=== PATIENT | female | born 1950 | race Caucasian/White ===

== ENCOUNTER → 2017-10-27 | Outpatient (CLI) | payer MEDICARE ==
[~2017-10-27] MED LIST: APIX5TAB PO; DILT240C61 PO; LEVO50TA5 PO; METO50TA82 PO; OMNIPAQUE 350 MG/ML, 150 ML BOTTLE ONE
== END | disposition home or self-care (01) ==
LOC: CFH 11:00
PROVIDERS: ATTEND Internal Medicine Cardiovascular Disease
DX: I48.91 Unspecified atrial fibrillation (principal); I25.10 Atherosclerotic heart disease of native coronary artery without angina pectoris
CPT/HCPCS: 71046; 75572; 82565; Q9967

== ENCOUNTER 2017-10-28 06:24 | Inpatient (IN) | payer MEDICARE ==
[2017-10-27 13:18] VITALS: BP 124/82
[2017-10-27 13:53] LABS: BASOPHILS # (AUTO) 0.06 x10^3/uL (0-0.1); BASOPHILS % (AUTO) 1 % (0-1); EOSINOPHILS # (AUTO) 0.09 x10^3/uL (0-0.4); EOSINOPHILS % (AUTO) 1 % (1-7); LYMPHOCYTES # (AUTO) 3.55 x10^3/uL (1-3.4); LYMPHOCYTES % (AUTO) 38 % (22-44); MD NO; MEAN CORPUSCULAR HEMOGLOBIN 29.6 pg (27.0-34.8); MEAN CORPUSCULAR HGB CONC 33.4 g/dL (32.4-35.8); MEAN CORPUSCULAR VOLUME 88.6 fL (80-100); MEAN PLATELET VOLUME 8.8 fL (7.4-10.4); MONOCYTES # (AUTO) 0.89 x10^3/uL (0.2-0.8); MONOCYTES % (AUTO) 10 % (2-9); NEUTROPHILS # (AUTO) 4.77 x10^3/uL (1.8-6.8); NEUTROPHILS % (AUTO) 51 % (42-75); PLATELET COUNT 250 x10^3/uL (130-400); RED BLOOD COUNT 4.95 x10^6/uL (3.82-5.3); RED CELL DISTRIBUTION WIDTH 14.6 % (9.6-15.2)
[2017-10-27 13:58] LABS: ALANINE AMINOTRANSFERASE 43 U/L (12-78); ALBUMIN 3.5 g/dL (3.4-5.0); ANION GAP 10 mmol/L (5-15); CHLORIDE 104 mmol/L (98-107); CREATININE 1.06 mg/dL (0.55-1.02)
[2017-10-27 14:00] LABS: ALKALINE PHOSPHATASE 110 U/L (45-117); BILIRUBIN,TOTAL 0.4 mg/dL (0.2-1.0); TOTAL PROTEIN 7.7 g/dL (6.4-8.2)
[~2017-10-28] VITALS: Ht 165.1 cm; Wt 93.2 kg
[~2017-10-28 06:24] MED LIST changes: -OMNIPAQUE 350 MG/ML, 150 ML BOTTLE ONE
[2017-10-28] MEDS ORDERED: SODIUM CHLORIDE 0.9% 1,000 ML IV SCH ×2 (06:40→07:00)
[2017-10-28] MEDS ORDERED: PROTAMINE SULFATE 10 MG/ML, 5ML ONE (07:54)
[2017-10-28] MEDS ORDERED: HEPARIN 1,000 UNITS/ML, 10ML ONE (07:54)
[2017-10-28] MEDS ORDERED: LIDOCAINE/PF 1%, 30ML ONE (07:54)
[2017-10-28] MEDS ORDERED: FENTANYL PF 250 MCG/5ML ONE (08:11)
[2017-10-28] MEDS ORDERED: MIDAZOLAM 1 MG/ML, 2ML ONE (08:11)
[2017-10-28] MEDS ORDERED: DEXAMETHASONE 4 MG/ML, 1ML ONE (08:14)
[2017-10-28] MEDS ORDERED: PROPOFOL 10 MG/ML, 20ML ONE (08:14)
[2017-10-28] MEDS ORDERED: ONDANSETRON 2MG/ML, 2ML ONE (08:14)
[2017-10-28] MEDS ORDERED: ROCURONIUM 10 MG/ML,10ML ONE (08:14)
[2017-10-28] MEDS ORDERED: SUCCINYLCHOLINE 20 MG/ML, 10ML ONE (08:14)
[2017-10-28] MEDS ORDERED: ACETAMINOPHEN 325 MG TABLET PO PRN ×2 (11:00→11:30)
[2017-10-28] MEDS ORDERED: EPHEDRINE 50 MG/ML, 1ML IM PRN (11:30)
[2017-10-28] MEDS ORDERED: OXYcodone 5 MG/5 ML ORAL.SOL UDC PO PRN (11:30)
[2017-10-28] MEDS ORDERED: LABETALOL 5MG/ML, 20ML IV PRN (11:30)
[2017-10-28] MEDS ORDERED: PROCHLORPERAZINE 5 MG/ML, 2ML IV PRN (11:30)
[2017-10-28] MEDS ORDERED: MORPHINE SULFATE 4 MG/ML, 1ML IVPush PRN (11:30)
[2017-10-28] MEDS ORDERED: FENTANYL PF 100 MCG/2ML IV PRN (11:30)
[2017-10-28] MEDS ORDERED: MIDAZOLAM 1 MG/ML, 2ML IV PRN (11:30)
[2017-10-28] MEDS ORDERED: EPHEDRINE 50 MG/ML, 1ML IVPush PRN (11:30)
[2017-10-28] MEDS ORDERED: DIPHENHYDRAMINE 50 MG/ML, 1ML IVPush PRN (11:30)
[2017-10-28] MEDS ORDERED: ONDANSETRON ODT 8 MG PO PRN (11:30)
[2017-10-28] MEDS ORDERED: PROMETHAZINE 25 MG/ML, 1ML IV PRN (11:30)
[2017-10-28] MEDS ORDERED: OXYcodone 5 MG/5 ML ORAL.SOL UDC ONE ×2 (11:34→11:35)
[2017-10-28] MEDS ORDERED: ACETAMINOPHEN 650 MG/20.3 ML UDC ONE (11:34)
[2017-10-28] MEDS: APIXABAN 5 MG TABLET PO SCH ×2 (11:43→23:33)
[2017-10-28 14:58] VITALS: BP 96/66
[2017-10-28] MEDS: OXYcodone/APAP 5/325MG TABLET PO PRN (16:36)
[2017-10-28 18:14] VITALS: BP 122/78
[2017-10-28] MEDS: SOTALOL 80MG TABLET PO SCH (18:18)
[2017-10-28 19:09] VITALS: BP 129/85
[2017-10-28] MEDS: ZOLPIDEM 5MG TABLET PO PRN (23:33)
[2017-10-29 01:14] VITALS: BP_SYST 110; BP_SYST 114; BP_DIAS 70; BP_DIAS 74
[2017-10-29] MEDS: OXYcodone/APAP 5/325MG TABLET PO PRN (01:19)
[2017-10-29 06:13] VITALS: BP 125/82
[2017-10-29] MEDS: SOTALOL 80MG TABLET PO SCH ×2 (06:18→18:39)
[2017-10-29 07:05] VITALS: BP 128/82
[2017-10-29] MEDS: APIXABAN 5 MG TABLET PO SCH ×2 (08:52→21:21)
[2017-10-29] MEDS: LEVOTHYROXINE 50 MCG TABLET PO SCH (08:52)
[2017-10-29 14:40] VITALS: BP_SYST 65; BP_SYST 95; BP_DIAS 62; BP_DIAS 82
[2017-10-29 19:51] VITALS: BP 116/86
[2017-10-29] MEDS: ZOLPIDEM 5MG TABLET PO PRN (21:21)
[2017-10-30 02:00] VITALS: BP 148/84
[2017-10-30 06:52] VITALS: BP 150/85
[2017-10-30] MEDS: SOTALOL 80MG TABLET PO SCH (08:11)
[2017-10-30] MEDS: LEVOTHYROXINE 50 MCG TABLET PO SCH (08:12)
[2017-10-30] MEDS: APIXABAN 5 MG TABLET PO SCH (08:12)
[2017-10-30] MEDS ORDERED: SOTA80TA18 PO (10:20)
== END 2017-10-30 13:05 | disposition home or self-care (01) | DRG 273 ==
LOC: CACL 06:24 → ORIP 10:31 → 5SO 14:44
PROVIDERS: ADMIT Internal Medicine Cardiovascular Disease; ATTEND Internal Medicine Cardiovascular Disease
PROC: 02K83ZZ Map Conduction Mechanism, Percutaneous Approach (ICD-10-PCS; 2017-10-28)
PROC: 4A0234Z Measurement of Cardiac Electrical Activity, Percutaneous Approach (ICD-10-PCS; 2017-10-28)
PROC: 02573ZK Destruction of Left Atrial Appendage, Percutaneous Approach (ICD-10-PCS; principal; 2017-10-28 08:00)
DX: I48.91 Unspecified atrial fibrillation (principal); I50.33 Acute on chronic diastolic (congestive) heart failure; D68.69 Other thrombophilia; I48.92 Unspecified atrial flutter; Z87.891 Personal history of nicotine dependence; E66.9 Obesity, unspecified; E03.9 Hypothyroidism, unspecified; R00.1 Bradycardia, unspecified; Z68.34 Body mass index [BMI] 34.0-34.9, adult
CPT/HCPCS: 36415; 80053; 85025; 85347; 93005; 93306; 93312; 93321; 93325; 93613; 93656; 93662; C1732; C1766; C1893; C1894; J1100; J1644; J2250; J2405; J2704; J2720; J3010; J3490; C1730; C1759; C2630; J0330